=== PATIENT | male | born 1960 | race Caucasian/White ===

== ENCOUNTER 2021-10-13 10:43 | Outpatient (AMB) | payer BC, SELFPAY ==
[2021-10-13 11:51] VITALS: BP 119/72; PULSE 59; TEMP 36.8; BMI 31.1
--- NOTE | 2021-10-13 11:51 | PD.URODRB ---
Intake Vital Signs 10/13/21 11:51 Height 1.91 m Height Method Stated Weight 113.171 kg Weight Measurement Method Standing Scale BMI 31.1 Temp 98.3 F Temp Source Temporal Artery Scan Pulse 59 L Pulse Source Monitor BP 119/72 Blood Pressure Source Automatic Cuff Blood Pressure Location Left Upper Arm Position Sitting Intake Visit Reasons: Uro Follow Up 6 Month Manager Of Transportation Required: No Accompanied by: Self / Same As Patient Is patient in pain?: No Allergy Allergies No Known Allergies Allergy (Verified 10/13/21 11:51) Home Meds Medication Reconciliation acetaminophen 500 mg tablet (Tylenol Extra Strength) 500 mg PO Q6HR PRN PAIN #0 tabs 02/14/14 [History Confirmed 10/13/21] carisoprodol 350 mg tablet (Soma) 350 mg PO TID PRN Spasms 11/27/20 [History Confirmed 10/13/21] etanercept 50 mg/mL (1 mL) subcutaneous pen injector (Enbrel SureClick) 50 mg subcut QWEEK 11/27/20 [History Confirmed 10/13/21] tamsulosin 0.4 mg capsule 0.4 mg PO QDAY 03/13/21 [History Confirmed 10/13/21] Nurse Note: Present in exam room with Dr Wilcox. Patient given lab slip to have PSA done in 6 months. mvp Fall Screening Do you have a fear of falling?: No Have you had a fall in the last 2 months?: No Do you use an assistive device for ambulation?: No Current Vital Signs Height Height Method Weight Weight Measurement Method Body Mass Index Temperature Temperature Source 1.91 m Stated 113.171 kg Standing Scale 31.1 98.3 F Temporal Artery Scan 10/13/21 11:51 10/13/21 11:51 10/13/21 11:51 10/13/21 11:51 10/13/21 11:51 10/13/21 11:51 10/13/21 11:51 Pulse Rate Pulse Source Blood Pressure Blood Pressure Source Blood Pressure Location Blood Pressure Position 59 L Monitor 119/72 Automatic Cuff Left Upper Arm Sitting 10/13/21 11:51 10/13/21 11:51 10/13/21 11:51 10/13/21 11:51 10/13/21 11:51 10/13/21 11:51 Nursing Documentation Social History Living Situation History Lives With: Family Housing: House Housing Other:: Lives with family Tobacco History Smoking Status: Never smoker Second Hand Smoke Exposure: No Alcohol History Alcohol Intake: Former Alcohol Intake Frequency: 3 or More Drinks per Day Office Procedures Uro Level of Care Nursing/Assessment/Reassessment Patient Status: Established Patient Nursing Assessment/Reassessment: Update [facility] data in EMR, Vital Signs and Medication Reconciliation Coordination of Care: Simp Pt/Fam Ed for care and Ref for ancillary service Established Patient Point Assignment: 65 Established Patient Point Charge: EP Level 2 (40-75) Procedure IM Injection: No Transrectal Ultrasound: No Provider Notes Provider Notes HISTORY OF PRESENT ILLNESS: [] REVIEW OF SYSTEMS: [] EXAM: [] ASSESSMENT & PLAN: [] VISIT DIAGNOSIS: []
[2021-10-13 12:01] LABS: Bilirubin,Urine Clinitek Negative (Negative); Blood,Urine Clinitek Negative (Negative); Glucose, Urine Clinitek Negative (Negative); Ketones,Urine Clinitek Negative (Negative); Leukocyte Esterase,Urine Clin Negative (Negative); Nitrite,Urine Clinitek Negative (Negative); Protein,Urine Clinitek Negative (Neg - Trace); Specific Gravity,Urine Clin 1.025 (1.001-1.030); Urobilinogen,Urine Clinitek 0.2 mg/dL (0.0-1.0)
--- NOTE | 2021-10-14 06:38 | URONOTEN_ITS ---
RE: LAKESHIA ADAME : 1960 DATE: 10/13/2021 CHIEF COMPLAINT: 1. BPH with urinary obstruction and LUTS. 2. Prostatomegaly. HISTORY OF PRESENT ILLNESS: This is a 60-year-old gentleman. He has frequency of urination x1 at night to 3 times during the day. IPSS score is 7. No history of hematuria, dysuria, or urinary tract infection. The patient was recommended prostate ultrasound, but he is not vaccinated. He will not go for a COVID test. He has no history of gross hematuria, dysuria, or urinary tract infection. Past medical history, family history, review of the systems, personal history, please refer to the patient's history form dated, 10/13/2021, it is in HPI, in EMR. VITAL SIGNS: Vital signs are stable. They are in the HPI, in EMR. GENERAL: Condition is satisfactory. Orientation x3. HEENT: Normocephalic, atraumatic. Eyes: No anemia or jaundice. NECK: Supple. Trachea is central. Thyroid is not enlarged. CHEST: Symmetrical. HEART: Regular rate and rhythm. ABDOMEN: Obese. No masses. Liver, spleen, kidney not palpable. No CVA tenderness. GENITALIA: Testes, epididymis, scrotum, urethra, external meatus all normal. RECTAL: Revealed perineum to be normal. External sphincter tone is normal. Prostate is 45g to 50 g. No definite induration, asymmetry indicative of prostate cancer. No rectal masses. EXTREMITIES: Revealed no edema, cyanosis, or clubbing. VARIOUS LABS: BUN is 16, creatinine is 0.8, GFR is 60. PSA on 02/02/2021 is 0.93. RECOMMENDATIONS: Recommendation is continue with tamsulosin 0.4 mg p.o. daily. Followup appointment in 6 months after PSA. DT: 12:39:00 TT: 20:57:00 Ref: - TID: [id number]
== END 2021-10-13 12:12 | disposition home or self-care (01) ==
LOC: HODURO 10:43
PROVIDERS: PCP Family Medicine; Visit Provider Urology

== ENCOUNTER → 2024-01-30 | Outpatient (CLI) | payer BC, SELFPAY ==
--- NOTE | 2024-01-30 | XR_ITS ---
Examination: Bilateral hands, 6 views. Technique: AP, Oblique, Lateral each hand total 6 views Date and time of exam: January 30, 2024 1317 hours INDICATIONS: Chronic bilateral hand pain diagnosis rheumatoid arthritis Findings: Significant osteopenia Significant narrowing distal interphalangeal joints second through fifth digits and interphalangeal joints first digit Old fracture deformity left fifth metacarpal, right fifth metacarpal No opaque foreign body IMPRESSION: Significant osteopenia Significant narrowing distal interphalangeal joints second through fifth digits and interphalangeal joints first digits
[2024-01-30 11:11] LABS: Quantiferon-TB* See Sep Rpt
[2024-01-30 11:48] LABS: Sed Rate (ESR) 18 mm/hr (0-20)
[2024-01-30 11:52] LABS: Basophils # (Auto) 0.1 Thou/mm3 (0.0-0.2); Basophils % (Auto) 1 % (0-2.5); Eosinophils # (Auto) 0.1 Thou/mm3 (0.0-0.5); Eosinophils % (Auto) 1 % (0-10); Hematocrit 43.3 % (41.0-53.0); Hemoglobin 14.6 g/dL (13.5-16.0); Immature Granulocytes % (Auto) 0 % (0-0); Immature Granulocytes Auto 0.01 Thou/mm3 (0.00-0.00); Lymphocytes # (Auto) 1.6 Thou/mm3 (1.0-4.8); Lymphocytes % (Auto) 28 % (10-50); Mean Corpuscular HGB Conc 33.7 g/dl (31.0-37.0); Mean Corpuscular Hemoglobin 31.6 pg (25.0-35.0); Mean Corpuscular Volume 94 fL (80-100); Monocytes # (Auto) 0.5 Thou/mm3 (0.0-0.8); Monocytes % (Auto) 9 % (0-12); Neutrophils # (Auto) 3.6 Thou/mm3 (1.8-7.7); Neutrophils % (Auto) 61 % (37-80); Nucleated Red Blood Cell % 0 /100 WBC (0); Platelet Count 215 Thou/mm3 (140-440); Red Blood Count 4.62 Miln/mm3 (4.50-5.90); White Blood Count 5.9 Thou/mm3 (3.8-10.6)
[2024-01-30 11:55] LABS: Alanine Aminotransferase 29 U/L (10-49); Albumin, Serum 4.5 gm/dL (3.4-4.8); Albumin/Globulin Ratio 1.6 (1.2-2.2); Alkaline Phosphatase 70 U/L (46-116); Anion Gap 5 (7-16); Aspartate Amino Transferase 31 U/L (0-34); BUN/Creatinine Ratio 13 Ratio (12-20); Bilirubin,Total 1.4 mg/dL (0.3-1.2); Blood Urea Nitrogen 12 mg/dL (9-23); Calcium 9.7 mg/dL (8.3-10.6); Calcium (Corrected) 9.7 mg/dL (8.5-10.1); Carbon Dioxide 27.9 mMol/L (20.0-31.0); Chloride 105 mMol/L (98-107); Creatinine (Component) 0.9 mg/dL (0.6-1.3); Globulin 2.8 gm/dL (2.3-3.5); Glucose 90 mg/dL (74-106); Osmolality,Calculated 275 (275-295); Potassium 4.7 mMol/L (3.4-5.1); Sodium 138 mMol/L (136-145); Total Protein 7.3 gm/dL (5.7-8.2); eGFR > 60 See Note
[2024-01-30 14:46] LABS: Cocci Serology, IgM Negative (Negative)
[2024-01-30 15:26] LABS: Misc Send Out* See Sep Rpt
[2024-01-31 13:52] LABS: Cocci Serology, IgG Negative (Negative)
[2024-02-14 07:03] LABS: Immunoglobulin A 360 mg/dL (70-320); Immunoglobulin G 1367 mg/dL (600-1540)
[2024-02-15 06:14] LABS: Immunoglobulin M 68 mg/dL (50-300)
== END | disposition home or self-care (01) ==
LOC: CDIM 10:43 → COPL 11:01
PROVIDERS: PCP Family Medicine; Referring Provider Nurse Practitioner; Visit Provider Radiology Diagnostic Radiology
DX: M85.842 Other specified disorders of bone density and structure, left hand (principal); M85.841 Other specified disorders of bone density and structure, right hand; M25.842 Other specified joint disorders, left hand; M25.841 Other specified joint disorders, right hand; Z86.19 Personal history of other infectious and parasitic diseases; M05.79 Rheumatoid arthritis with rheumatoid factor of multiple sites without organ or systems involvement
CPT/HCPCS: 36415; 73130; 80053; 82784; 82785; 85025; 85652; 86331; 86480; 86635

== ENCOUNTER → 2024-02-27 | Outpatient (BNVA) | payer BC, SELFPAY | END | disposition home or self-care (01) | PROVIDERS: PCP Family Medicine; Referring Provider Family Medicine; Visit Provider Urology | DX: N40.1 Benign prostatic hyperplasia with lower urinary tract symptoms (principal); N13.8 Other obstructive and reflux uropathy; E11.9 Type 2 diabetes mellitus without complications | CPT/HCPCS: 99212; G0463 ==

== ENCOUNTER → 2024-02-28 | Outpatient (CLI) | payer BC, SELFPAY ==
[2024-02-28 15:51] LABS: Collection Type, Urine Clean Catch
[2024-02-28 16:31] LABS: Basophils % (Auto) 0 % (0-2.5); Eosinophils % (Auto) 0 % (0-10); Hematocrit 43.2 % (41.0-53.0); Hemoglobin 14.4 g/dL (13.5-16.0); Immature Granulocytes % (Auto) 0 % (0-0); Immature Granulocytes Auto 0.01 Thou/mm3 (0.00-0.00); Lymphocytes # (Auto) 1.5 Thou/mm3 (1.0-4.8); Lymphocytes % (Auto) 15 % (10-50); Mean Corpuscular HGB Conc 33.3 g/dl (31.0-37.0); Mean Corpuscular Volume 93 fL (80-100); Monocytes # (Auto) 0.9 Thou/mm3 (0.0-0.8); Monocytes % (Auto) 9 % (0-12); Neutrophils # (Auto) 7.1 Thou/mm3 (1.8-7.7); Neutrophils % (Auto) 75 % (37-80); Nucleated Red Blood Cell % 0 /100 WBC (0); Platelet Count 229 Thou/mm3 (140-440); RDW Standard Deviation 42.6 fL (35.1-43.9); Red Blood Count 4.65 Miln/mm3 (4.50-5.90); White Blood Count 9.5 Thou/mm3 (3.8-10.6)
[2024-02-28 16:40] LABS: Anion Gap 9 (7-16); BUN/Creatinine Ratio 15 Ratio (12-20); Blood Urea Nitrogen 16 mg/dL (9-23); Calcium 9.6 mg/dL (8.3-10.6); Chloride 102 mMol/L (98-107); Creatinine (Component) 1.1 mg/dL (0.6-1.3); Glucose 85 mg/dL (74-106); Osmolality,Calculated 272 (275-295); Potassium 4.5 mMol/L (3.4-5.1); Sodium 136 mMol/L (136-145); eGFR > 60 See Note
[2024-02-28 16:49] LABS: Bilirubin,Urine Negative (Negative); Blood,Urine Negative (Negative); Clarity,Urine Clear (Clear/Hazy); Color,Urine Yellow (Lt Yel-Yel); Glucose, Urine Negative (Negative); Ketones,Urine 1+ (Negative); Leukocyte Esterase,Urine Negative (Negative); Nitrite,Urine Negative (Negative); PH,Urine 5.5 (5.0-7.0); Protein,Urine 1+ (Neg - Trace); RBC,Urine 5 /hpf (0-3); Specific Gravity,Urine 1.032 (1.001-1.035); Squamous Epithelial Cell,Urine < 1 /hpf (0-5); Urobilinogen,Urine Negative mg/dL (0.0-1.0); WBC,Urine 7 /hpf (0-5)
== END | disposition home or self-care (01) ==
LOC: COPL 15:19
PROVIDERS: PCP Family Medicine; Referring Provider Family Medicine; Visit Provider Family Medicine
DX: N10 Acute pyelonephritis (principal)
CPT/HCPCS: 36415; 80048; 81001; 85025; 87086

== ENCOUNTER → 2024-03-08 | Outpatient (CLI) | payer BC, SELFPAY ==
--- NOTE | 2024-03-08 | XR_ITS ---
Examination: Retroperitoneal ultrasound, complete Technique: Multiple high resolution grayscale images of the retroperitoneum obtained, including kidneys and bladder. Exam date and time:March 08, 2024 1235 hours INDICATIONS: Right flank pain with painful urination beginning 2 weeks ago, history enlarged prostate FINDINGS: Right kidney 11.7 x 5.3 x 6.1 cm cortex 2.0 cm Left kidney 12.4 x 4.8 x 5.3 cm cortex 1.6 cm Lower pole left renal cyst 12 mm Mild bilateral renal parenchymal scar formation No hydronephrosis No bladder mass or bladder calculi Bladder prevoid volume 539 cc postvoid 9 207 cc Marked prostatomegaly 5.6 x 4.9 x 6.4 cm volume 91.1 cc no prostate nodules IMPRESSION: Mild bilateral renal parenchymal scar formation Marked prostatomegaly, no prostate nodules
== END | disposition home or self-care (01) ==
PROVIDERS: PCP Family Medicine; Referring Provider Family Medicine; Visit Provider Family Medicine
DX: N28.89 Other specified disorders of kidney and ureter (principal)
CPT/HCPCS: 76770

== ENCOUNTER → 2024-03-12 | Outpatient (CLI) | payer BC, SELFPAY ==
[2024-03-12 16:58] LABS: Alanine Aminotransferase 37 U/L (10-49); Albumin, Serum 4.7 gm/dL (3.4-4.8); Alkaline Phosphatase 65 U/L (46-116); Amylase 64 U/L (30-118); Aspartate Amino Transferase 30 U/L (0-34); Bilirubin,Direct 0.4 mg/dL (0.0-0.3); Bilirubin,Total 1.3 mg/dL (0.3-1.2); Lipase 34 U/L (12-53); Total Protein 7.5 gm/dL (5.7-8.2)
== END | disposition home or self-care (01) ==
LOC: COPL 16:05
PROVIDERS: PCP Family Medicine; Referring Provider Family Medicine; Visit Provider Family Medicine
DX: R10.9 Unspecified abdominal pain (principal)
CPT/HCPCS: 36415; 80076; 82150; 83690

== ENCOUNTER → 2024-03-14 | Outpatient (CLI) | payer BC, SELFPAY ==
[2024-03-22 06:35] LABS: Helicobacter pylori Ag, Stool* NOT DETECTED (NOT DETECTED)
== END | disposition home or self-care (01) ==
LOC: SLDO 14:12
PROVIDERS: PCP Family Medicine; Referring Provider Family Medicine; Visit Provider Family Medicine
DX: R10.9 Unspecified abdominal pain (principal)
CPT/HCPCS: 87338

== ENCOUNTER → 2024-08-27 | Outpatient (CLI) | payer BC, SELFPAY | END | disposition home or self-care (01) | LOC: SLDO 13:15 | PROVIDERS: PCP Family Medicine; Referring Provider Family Medicine; Visit Provider Family Medicine | DX: R10.9 Unspecified abdominal pain (principal); B89 Unspecified parasitic disease | CPT/HCPCS: 87177; 87209 ==

== ENCOUNTER → 2025-02-26 | Outpatient (BNVA) | payer BC, SELFPAY | END | disposition home or self-care (01) | PROVIDERS: PCP Family Medicine; Referring Provider Family Medicine; Visit Provider Urology | DX: N40.1 Benign prostatic hyperplasia with lower urinary tract symptoms (principal); N13.8 Other obstructive and reflux uropathy; M06.9 Rheumatoid arthritis, unspecified; E66.9 Obesity, unspecified; Z68.30 Body mass index [BMI] 30.0-30.9, adult | CPT/HCPCS: 81003; 99212; G0463 ==